=== PATIENT | male | born 1980 | race Caucasian/White ===

== ENCOUNTER 2023-07-03 17:12 | Inpatient (IN) | payer OTHER ==
[~2023-07-03] VITALS: Ht 190.5 cm; Wt 108.9 kg
[~2023-07-03 17:12] MED LIST: ASHWAGANDHA RO300 MG PO; BACLOFEN20 MG PO; BOOST PO; ELDERBERRY IMM1 EACH PO; FENOFIBRATE145 MG PO; FIBER GUMMIES2 GM PO; FLONASE ALLERG9.9 ML INH; LOVAZA1 GM PO; MAGNESIUM OXID400 MG PO; METFORMIN HCL500 M1 PO; MONTELUKAST SOD10 MG PO; MOTRIN200 MG PO; MOUNJARO7.5 MG/0.5 SC; TESTOSTERO200 MG/1 M INJ; TURMERIC-GINGE1 EACH PO; ZYRTEC-D TABLE1 EACH PO; [UNRECOGNIZED DRUG - OTHER] PO; [UNRECOGNIZED DRUG - OTHER] PO; [UNRECOGNIZED DRUG - OTHER] PO
[2023-07-03 18:14] LABS: BASOPHILS # (AUTO) 0.1 (0.0-0.1); EOSINOPHILS # (AUTO) 0.4 (0.0-0.4); EOSINOPHILS % 3.8 % (0.0-6.0); HEMATOCRIT 45.1 % (38.2-49.6); LYMPHOCYTES # (AUTO) 4.7 (1.0-3.2); MEAN CORPUSCULAR HEMOGLOBIN 29.1 pg (28-32); MEAN CORPUSCULAR HGB CONC 33.3 g/dL (31-35); MEAN CORPUSCULAR VOLUME 87.4 fL (81-99); MONOCYTES # (AUTO) 0.8 (0.2-0.8); MONOCYTES % 8.6 % (4.4-11.3); NEUTROPHILS # (AUTO) 3.6 (2.1-6.9); NEUTROPHILS % 37.2 % (38.7-80.0); PLATELET COUNT 215 x10e3/uL (140-360); RED BLOOD COUNT 5.16 x10e6/uL (4.3-5.7); WHITE BLOOD COUNT 9.58 x10e3/uL (4.8-10.8)
[2023-07-03 18:28] LABS: ALBUMIN 4.5 g/dL (3.5-5.0); ALBUMIN/GLOBULIN RATIO 1.2 (0.8-2.0); BILIRUBIN,TOTAL 0.3 mg/dL (0.2-1.2); CALCIUM 10.7 mg/dL (8.4-10.2); CREATININE, SERUM 1.35 mg/dL (0.72-1.25); TOTAL PROTEIN 8.3 g/dL (6.5-8.1)
[2023-07-03] MEDS ORDERED: IOPAMIDOL 370 MG/ML 100 ML INFUS..BTL INJ ONE (18:41)
[2023-07-03] MEDS ORDERED: SODIUM CHLORIDE FLUSH 10 ML SYR INJ PRN (21:30)
[2023-07-03] MEDS ORDERED: ELIQUIS5 MG PO (23:15)
[2023-07-03 23:26] VITALS: BP 128/91; O2SAT 99
[2023-07-03 23:44] VITALS: BP 128/91; O2SAT 99
[2023-07-03 23:45] VITALS: BP 128/91; O2SAT 99
[2023-07-04] VITALS (8 sets, daily range): BP systolic 98–136; BP diastolic 55–88; PULSE 85–104; RESP 17–19; TEMP 97.8–98.4; O2SAT 95–99
[2023-07-04] MEDS ORDERED: APIXABAN 5 MG TABLET PO STA (00:19)
[2023-07-04 02:04] LABS: CREATINE KINASE 99 IU/L (30-200)
[2023-07-04 02:11] LABS: TROPONIN I < 0.001 ng/mL (0-0.300)
[2023-07-04] MEDS ORDERED: ASPIRIN 81 MG CHEW TAB PO ONE (04:15)
[2023-07-04 06:25] LABS: CHOL/HDL RATIO 6.9 (3.9-4.7)
[2023-07-04 06:38] LABS: CREATINE KINASE 102 IU/L (30-200)
[2023-07-04 06:41] LABS: TROPONIN I < 0.001 ng/mL (0-0.300)
[2023-07-04] MEDS: APIXABAN 5 MG TABLET PO SCH ×2 (09:22→16:01)
[2023-07-04 12:37] LABS: CREATINE KINASE 99 IU/L (30-200)
[2023-07-04 12:47] LABS: TROPONIN I < 0.001 ng/mL (0-0.300)
[2023-07-04] MEDS ORDERED: NON-FORMULARY MEDICATION (Fluticasone Propionate* (Flonase Allergy Relief*) 1 EACH) INH SCH (17:00)
[2023-07-04] MEDS: FLUTICASONE PROPIONATE NASAL SPRAY NS SCH (18:39)
[2023-07-05] VITALS (8 sets, daily range): BP systolic 93–117; BP diastolic 55–69; PULSE 85–106; RESP 17–19; TEMP 97.7–98.5; O2SAT 96–98
[2023-07-05] MEDS: MONTELUKAST SODIUM 10 MG TAB PO SCH (08:22)
[2023-07-05] MEDS: APIXABAN 5 MG TABLET PO SCH ×2 (08:22→16:58)
[2023-07-05] MEDS: FENOFIBRATE 145 MG TAB PO SCH (08:23)
[2023-07-05] MEDS: FLUTICASONE PROPIONATE NASAL SPRAY NS SCH ×2 (09:00→16:58)
[2023-07-06] VITALS (9 sets, daily range): BP systolic 96–125; BP diastolic 56–80; PULSE 74–102; RESP 17–20; TEMP 97.7–98.4; O2SAT 97–100
[2023-07-06 05:54] LABS: BASOPHILS # (AUTO) 0.1 (0.0-0.1); EOSINOPHILS # (AUTO) 0.3 (0.0-0.4); HEMATOCRIT 43.3 % (38.2-49.6); LYMPHOCYTES # (AUTO) 3.3 (1.0-3.2); LYMPHOCYTES % 42.5 % (18.0-39.1); MEAN CORPUSCULAR HEMOGLOBIN 28.5 pg (28-32); MEAN CORPUSCULAR HGB CONC 32.3 g/dL (31-35); MONOCYTES # (AUTO) 0.7 (0.2-0.8); MONOCYTES % 8.5 % (4.4-11.3); NEUTROPHILS # (AUTO) 3.4 (2.1-6.9); NEUTROPHILS % 43.2 % (38.7-80.0); PLATELET COUNT 194 x10e3/uL (140-360); RED BLOOD COUNT 4.92 x10e6/uL (4.3-5.7); RED CELL DISTRIBUTION WIDTH 13.2 % (11.7-14.4); WHITE BLOOD COUNT 7.84 x10e3/uL (4.8-10.8)
[2023-07-06 06:22] LABS: ALBUMIN 3.8 g/dL (3.5-5.0); ALBUMIN/GLOBULIN RATIO 1.2 (0.8-2.0); ANION GAP 13.1 mmol/L (8-16); BILIRUBIN,TOTAL 0.4 mg/dL (0.2-1.2); CALCIUM 9.6 mg/dL (8.4-10.2); CREATININE, SERUM 1.02 mg/dL (0.72-1.25); POTASSIUM 4.1 mmol/L (3.5-5.1); TOTAL PROTEIN 6.9 g/dL (6.5-8.1)
[2023-07-06] MEDS ORDERED: ENOXAPARIN SODIUM INJ 100 MG/ML SYR SC SCH (09:00)
[2023-07-06] MEDS: FENOFIBRATE 145 MG TAB PO SCH (09:05)
[2023-07-06] MEDS: MONTELUKAST SODIUM 10 MG TAB PO SCH (09:05)
[2023-07-06] MEDS: FLUTICASONE PROPIONATE NASAL SPRAY NS SCH ×2 (09:06→17:26)
[2023-07-06 09:12] LABS: MAGNESIUM 1.7 MG/DL (1.3-2.1); PHOSPHORUS 3.6 MG/DL (2.3-4.7)
[2023-07-06] MEDS ORDERED: ACETAMINOPHEN 325 MG TAB PO PRN (12:15)
[2023-07-06] MEDS ORDERED: METOPROLOL TARTRATE INJ 1 MG/ML VIAL IV PRN (12:15)
[2023-07-06] MEDS ORDERED: ONDANSETRON HCL INJ 2MG/ML 2ML 2 MG/ML VIAL IV PRN (12:15)
[2023-07-06] MEDS ORDERED: POLYETHYLENE GLYCOL 3350 17 GM PACK PO PRN (12:15)
[2023-07-06] MEDS ORDERED: MAGNESIUM SULF 1GRAM/DEXTROSE 100 ML IV ONE (13:00)
[2023-07-06] MEDS: PANTOPRAZOLE SOD 40 MG TABEC PO SCH (13:46)
[2023-07-06] MEDS: DOCUSATE SODIUM 100 MG CAP PO SCH (17:00)
[2023-07-06] MEDS: OMEGA 3 POLYUNSAT FATTY ACIDS 1000 MG SOFTGEL PO SCH (17:26)
[2023-07-06] MEDS: ENOXAPARIN SODIUM INJ 100 MG/ML SYR SC SCH (20:34)
[2023-07-07 00:39] VITALS: BP 107/56; PULSE 95; RESP 21; TEMP 98.2; O2SAT 98
[2023-07-07 04:18] VITALS: BP 117/65; PULSE 90; RESP 20; TEMP 97.7; O2SAT 97
[2023-07-07 06:03] LABS: BASOPHILS # (AUTO) 0.1 (0.0-0.1); BASOPHILS % 0.9 % (0.0-1.0); EOSINOPHILS # (AUTO) 0.3 (0.0-0.4); EOSINOPHILS % 3.7 % (0.0-6.0); HEMATOCRIT 42.2 % (38.2-49.6); HEMOGLOBIN 13.7 g/dL (14.0-18.0); LYMPHOCYTES # (AUTO) 3.8 (1.0-3.2); LYMPHOCYTES % 53.3 % (18.0-39.1); MEAN CORPUSCULAR HGB CONC 32.5 g/dL (31-35); MEAN CORPUSCULAR VOLUME 89.4 fL (81-99); MONOCYTES # (AUTO) 0.6 (0.2-0.8); MONOCYTES % 8.8 % (4.4-11.3); NEUTROPHILS # (AUTO) 2.3 (2.1-6.9); NEUTROPHILS % 32.3 % (38.7-80.0); PLATELET COUNT 194 x10e3/uL (140-360); RED BLOOD COUNT 4.72 x10e6/uL (4.3-5.7); RED CELL DISTRIBUTION WIDTH 13.3 % (11.7-14.4); WHITE BLOOD COUNT 7.04 x10e3/uL (4.8-10.8)
[2023-07-07 06:43] LABS: ALBUMIN 3.9 g/dL (3.5-5.0); ALBUMIN/GLOBULIN RATIO 1.3 (0.8-2.0); ANION GAP 11.9 mmol/L (8-16); BILIRUBIN,TOTAL 0.3 mg/dL (0.2-1.2); CALCIUM 9.3 mg/dL (8.4-10.2); CREATININE, SERUM 1.06 mg/dL (0.72-1.25); MAGNESIUM 1.7 MG/DL (1.3-2.1); POTASSIUM 3.9 mmol/L (3.5-5.1); TOTAL PROTEIN 6.9 g/dL (6.5-8.1)
[2023-07-07] MEDS ORDERED: SODIUM CHLORIDE 0.9% 1000ML 1,000 ML IV SCH (07:00)
[2023-07-07] MEDS ORDERED: MAGNESIUM SULF 1GRAM/DEXTROSE 100 ML IV ONE (07:30)
[2023-07-07 07:59] VITALS: BP 117/65; PULSE 90; RESP 20; TEMP 97.7; O2SAT 97
[2023-07-07 08:28] VITALS: BP 113/70; PULSE 95; RESP 18; TEMP 97.7; O2SAT 100
[2023-07-07] MEDS ORDERED: MAGNESIUM OXIDE 400 MG TAB PO SCH ×2 (09:00)
[2023-07-07] MEDS: MONTELUKAST SODIUM 10 MG TAB PO SCH (09:22)
[2023-07-07] MEDS: ENOXAPARIN SODIUM INJ 100 MG/ML SYR SC SCH (09:22)
[2023-07-07] MEDS: OMEGA 3 POLYUNSAT FATTY ACIDS 1000 MG SOFTGEL PO SCH (09:22)
[2023-07-07] MEDS: FENOFIBRATE 145 MG TAB PO SCH (09:22)
[2023-07-07] MEDS: DOCUSATE SODIUM 100 MG CAP PO SCH (09:22)
[2023-07-07] MEDS: PANTOPRAZOLE SOD 40 MG TABEC PO SCH (09:23)
[2023-07-07] MEDS: FLUTICASONE PROPIONATE NASAL SPRAY NS SCH (09:25)
[2023-07-07] MEDS ORDERED: REGADENOSON 0.4 MG/5 ML SYR IV ONE (11:45)
[2023-07-07 12:16] VITALS: BP 113/79; PULSE 93; RESP 17; TEMP 97.9; O2SAT 97
[2023-07-07] MEDS ORDERED: PROTONIX40 MG/ML PO (14:05)
[2023-07-07] MEDS ORDERED: ACETAMINOPHEN325 M1 PO (14:05)
== END 2023-07-07 15:26 | disposition home or self-care (01) | DRG 311 ==
LOC: ER 17:20 → ERHOLD 21:23 → MED/SURG2 22:46 → OBSVTOIN 07-07 07:31
PROVIDERS: ADMIT Internal Medicine; ATTEND Internal Medicine
DX: I20.9 Angina pectoris, unspecified (principal); I26.99 Other pulmonary embolism without acute cor pulmonale; R55 Syncope and collapse; M25.512 Pain in left shoulder; E86.0 Dehydration; E83.52 Hypercalcemia; E78.5 Hyperlipidemia, unspecified; E11.9 Type 2 diabetes mellitus without complications; Z79.84 Long term (current) use of oral hypoglycemic drugs; K58.9 Irritable bowel syndrome, unspecified; E83.42 Hypomagnesemia; E29.1 Testicular hypofunction; Z20.822 Contact with and (suspected) exposure to COVID-19; Z79.899 Other long term (current) drug therapy; Z79.01 Long term (current) use of anticoagulants; Z85.72 Personal history of non-Hodgkin lymphomas; Z79.890 Hormone replacement therapy; Z92.21 Personal history of antineoplastic chemotherapy; Z86.718 Personal history of other venous thrombosis and embolism
CPT/HCPCS: 36415; 70496; 70498; 71260; 76770; 78452; 80053; 80061; 82550; 83036; 83735; 84100; 84484; 85025; 87400; 93005; 93017; 93306; 94799; 99284; A9502; G0378; J1650; J3475; J7030; Q9967; U0002